=== PATIENT | female | born 1975 | race Caucasian/White ===

== ENCOUNTER 2016-05-08 21:47 | Emergency (ER) | payer OTHER ==
[~2016-05-08] VITALS: Ht 160 cm; Wt 52.2 kg
[~2016-05-08 21:47] MED LIST: HYDR-971 PO; IBUP-1027 PO
[2016-05-08 23:00] VITALS: BP 120/58
[2016-05-08] MEDS ORDERED: CYCL5TAB PO (23:44)
[2016-05-08] MEDS ORDERED: METH4TAB2 PO (23:44)
[2016-05-08] MEDS ORDERED: NAPR500T8 PO (23:44)
--- NOTE | 2016-05-08 23:44 | PHYS DOC ---
Past Medical History Past Medical History: Anxiety, Depression, Hypothyroid, Other Additional Past Medical Histor: pt reports cutting herself frequently Past Surgical History: No Surgical History Additional Past Surgical Histo: breast lumpectomy, benign Alcohol Use: Heavy Drug Use: None Adult General Chief Complaint Chief Complaint: LOWER BACK PAIN OR INJURY HPI HPI Patient is a 40 year old female with history of anxiety and hypothyroidism who presents today with left low back pain radiating into the left buttock that began a week ago after lifting something heavy at work. She works for [employer]. Patient denies any numbness or tingling to bilateral lower extremities or loss of bowel bladder function. She states her pain is worse when she is sitting down. She is standing up. Review of Systems Review of Systems Constitutional: Denies fever or chills [] Musculoskeletal: Left low back pain radiating into the bilateral Integument: Denies rash or skin lesions [] Neurologic: Denies headache, focal weakness or sensory changes [] Endocrine: Denies polyuria or polydipsia [] Allergies Allergies Allergies Coded Allergies Type Severity Reaction Last Updated Verified adhesive Allergy Intermediate 05/08/16 Yes Physical Exam Physical Exam Constitutional: Well developed, well nourished, no acute distress, non-toxic appearance. [] Abdomen: Bowel sounds normal, soft, no tenderness, no masses, no pulsatile masses. [] Skin: Warm, dry, no erythema, no rash. [] Back: Diffuse tenderness to paraspinal muscles of the left lumbar spine worse on the left SI joint, no midline tenderness, no CVA tenderness. [] Extremities: No tenderness, no cyanosis, no clubbing, ROM intact, no edema. [] Neurologic: Alert and oriented X 3, normal motor function, normal sensory function, no focal deficits noted. [] Psychologic: Affect normal, judgement normal, mood normal. [] Current Patient Data Vital Signs Vital Signs Date Time Temp Pulse Resp B/P Pulse Ox O2 Delivery O2 Flow Rate FiO2 05/08/16 23:00 98.5 90 18 100 Room Air 98.5 EKG EKG [] Radiology/Procedures Radiology/Procedures [] Course & Med Decision Making Course & Med Decision Making Pertinent Labs and Imaging studies reviewed. (See chart for details) Patient is in the ED with left low back pain after lifting a heavy item at work a week ago. We did talk about benefits of x-rays as well as side effects. Both patient and I agreed she does not need an x-ray today. Patient has lumbar strain. Recommended heat to her back. Discharge her with anti-inflammatory muscle relaxer and a steroid. She is to follow-up with her own PCP in one week. She was provided return precautions and discharged in stable condition. Dragon Disclaimer Dragon Disclaimer This electronic medical record was generated, in whole or in part, using a voice recognition dictation system. Departure Departure Impression: Primary Impression: Lumbar strain Disposition: 01 HOME, SELF-CARE Condition: STABLE Referrals: BRODY MARQUES MD (PCP) Follow-up with your own doctor in one week Patient Instructions: Lumbosacral Strain Additional Instructions: You were seen for lumbar strain after lifting a heavy object at work. Apply heat to your back. Avoid lifting heavy objects for the next 7 days. Take the prescribed medicines as ordered. Scripts Cyclobenzaprine Hcl 5 Mg Tablet1 Tab PO TID #30 TAB Prov:VINCE FRYE APRN 05/08/16 Methylprednisolone (Medrol)4 Mg Tab.ds.pk1 Pkg PO UD #1 PKG Prov:VINCE FRYE APRN 05/08/16 Naproxen 500 Mg Tablet.dr1 Tab PO BID #60 TAB Ref 2 Prov:VINCE FRYE APRN 05/08/16 Problem Qualifiers Primary Impression: Lumbar strain Encounter type: initial encounter Qualified Code: S39.012A - Strain of muscle, fascia and tendon of lower back, initial encounter VINCE FRYE APRN May 08, 2016 23:44
== END 2016-05-09 01:07 | disposition home or self-care (01) ==
LOC: ER 21:47
DX: S39.012A Strain of muscle, fascia and tendon of lower back, initial encounter (principal); E03.9 Hypothyroidism, unspecified; F10.10 Alcohol abuse, uncomplicated; Z91.048 Other nonmedicinal substance allergy status; F32.9 Major depressive disorder, single episode, unspecified; Y90.9 Presence of alcohol in blood, level not specified; X58.XXXA Exposure to other specified factors, initial encounter; Y93.89 Activity, other specified; Y92.69 Other specified industrial and construction area as the place of occurrence of the external cause; Y99.8 Other external cause status
CPT/HCPCS: 99283

== ENCOUNTER → 2016-06-20 | Outpatient (CLI) | payer OTHER ==
[~2016-06-20] MED LIST changes: +CITA20TA9 PO; +CYCL5TAB PO; +LEVO125T5 PO; +METH4TAB2 PO; +NAPR500T8 PO
[2016-06-20 14:43] LABS: BASO # 0.1 x10^3/uL (0.0-0.2); BASO % 1 % (0-3); EOS % 1 % (0-3); HEMATOCRIT 28.5 % (36.0-47.0); HEMOGLOBIN 8.9 g/dL (12.0-15.5); LYMPH # 3.9 x10^3/uL (1.0-4.8); LYMPH % 61 % (24-48); MEAN CORPUSCULAR HEMOGLOBIN 21 pg (25-35); MEAN CORPUSCULAR HGB CONC 31 g/dL (31-37); MEAN CORPUSCULAR VOLUME 68 fL (79-100); MONO % 5 % (0-9); NEUT % 33 % (31-73); PLATELET COUNT 353 x10^3/uL (140-400); RED CELL DISTRIBUTION WIDTH 19.9 % (11.5-14.5); WHITE BLOOD COUNT 6.4 x10^3/uL (4.0-11.0)
[2016-06-20 15:42] LABS: % BASOS 2 % (0-3); ANISOCYTOSIS SLIGHT; HYPOCHROMIA MOD; MICROCYTOSIS MOD; OVALOCYTES FEW; PLT ESTIMATE ADEQUATE (ADEQUATE); POIKILOCYTOSIS SLIGHT; TARGET CELLS FEW
== END | disposition home or self-care (01) ==
LOC: SURGPAT 13:25
PROVIDERS: ATTEND Obstetrics & Gynecology
DX: Z01.812 Encounter for preprocedural laboratory examination (principal)
CPT/HCPCS: 36415; 85007; 85027

== ENCOUNTER → 2016-06-27 | Outpatient (CLI) | payer OTHER ==
[~2016-06-27] MED LIST changes: +CEPH-264 PO; +TAMS0.4C97 PO
[2016-06-27 08:23] VITALS: BP 106/59
[2016-06-27 08:31] LABS: HEMATOCRIT 28.9 % (36.0-47.0); HEMOGLOBIN 9.1 g/dL (12.0-15.5)
[2016-06-27 09:30] VITALS: BP 86/48
[2016-06-27 10:30] VITALS: BP 85/55
[2016-06-27 11:01] VITALS: BP 107/63
== END | disposition home or self-care (01) ==
LOC: OPS 07:31
PROVIDERS: ATTEND Obstetrics & Gynecology
DX: D64.9 Anemia, unspecified (principal)
CPT/HCPCS: 36415; 36430; 85014; 85018; 86850; 86900; 86901; 86920; P9016

== ENCOUNTER 2016-06-28 07:25 | Observation (INO) | payer OTHER ==
[2016-06-28] VITALS (9 sets, daily range): BP systolic 80–98; BP diastolic 50–61
[~2016-06-28] VITALS: Ht 160 cm; Wt 48.5 kg
[~2016-06-28 07:25] MED LIST changes: +CEFAZOLIN 1GM IVPB FOR OMNI 50 ML IV PRN; -CEPH-264 PO; -TAMS0.4C97 PO
[2016-06-28] MEDS ORDERED: IV RINGERS,LACTATED 1000ML 1,000 ML IV SCH (07:31)
[2016-06-28] MEDS ORDERED: LIDOCAINE 1% 1 ML SYRINGE. ID PRN (07:45)
[2016-06-28] MEDS ORDERED: MIDAZOLAM HCL/PF 2 MG/2 ML VIAL. IV PRN (07:45)
[2016-06-28] MEDS ORDERED: FENTANYL PF 100 MCG/2 ML VIAL. IV PRN (07:45)
[2016-06-28 07:51] LABS: NEG OBC UR NEG; POS OBC UR POS
[2016-06-28] MEDS ORDERED: PROPOFOL 20 ML IV ONE (08:14)
[2016-06-28] MEDS ORDERED: FAMOTIDINE 20 MG/2 ML VIAL ONE (08:14)
[2016-06-28] MEDS ORDERED: LIDOCAINE 2% 100 MG/5 ML DISP.SYRIN. ONE (08:14)
[2016-06-28] MEDS ORDERED: DEXAMETHASONE SOD PHOS 20 MG/5 ML VIAL. ONE (08:14)
[2016-06-28] MEDS ORDERED: ONDANSETRON PF 4 MG/2 ML VIAL. ONE (08:14)
[2016-06-28] MEDS ORDERED: MIDAZOLAM HCL/PF 2 MG/2 ML VIAL. ONE (08:16)
[2016-06-28] MEDS ORDERED: ROCURONIUM 50 MG/5 ML VIAL. ONE (08:16)
[2016-06-28] MEDS ORDERED: FENTANYL PF 100 MCG/2 ML VIAL. ONE ×2 (08:16→10:17)
--- NOTE | 2016-06-28 08:53 | DISCH ---
DISCHARGE INSTRUCTIONS Condition on Discharge Condition on Discharge: Stable Activity After Discharge Activity Instructions for Disc: Progressive ambulation Exercise Instruction after Dis: Progress as tolerated Driving Instructions after Dis: No driving for 2 weeks Weight Bearing Status after Di: Full weight bearing Diet after Discharge Diet after Discharge: Regular Wound Incision Care Wound/Incision Care: Ice to area for comfort, May get incision wet Contacting the DRJaycob after DC Call your doctor for: If your condition worsens Follow-Up Follow up with: Dr. Salas in 1 week HEATHER SALAS MD Jun 28, 2016 08:53
[2016-06-28] MEDS ORDERED: BUPIVACAINE-EPI 0.25%-1:200000 50 ML VIAL. ONE (09:01)
[2016-06-28] MEDS ORDERED: METHYLENE BLUE 1% 1 ML VIAL. ONE (09:01)
[2016-06-28] MEDS ORDERED: ESTROGENS, CONJ VAGINAL CREAM 30GM TUBE. ONE (09:01)
[2016-06-28] MEDS ORDERED: ACETAMINOPHEN INTRAVENOUS 100 ML IV ONE (09:13)
[2016-06-28] MEDS ORDERED: PHENYLEPHRINE in 0.9% NACL PF 1 MG/10 ML DISP.SYRIN. IV ONE (09:54)
[2016-06-28] MEDS ORDERED: NEOSTIGMINE METHYLSULFATE 5 MG/5 ML SYRINGE. ONE (09:55)
[2016-06-28] MEDS ORDERED: GLYCOPYRROLATE 1 MG/5 ML VIAL. ONE (09:55)
[2016-06-28] MEDS ORDERED: SEVOFLURANE 61 TO 120 MINUTES. IH ONE (10:18)
--- NOTE | 2016-06-28 10:24 | PDOC ---
BRIEF OPERATIVE NOTE Date: Jun 28, 2016 Pre-Op Diagnosis menorrhagia, uterine fibroid Post-Op Diagnosis same Procedure Performed lavh and bilateral salpingectomy Surgeon Wanda Hart Anesthesiologist [facility] Anesthesia Type: General Blood Loss <25cc IV Fluid see anesthesia Urine Output 35cc Specimens Obtained uterus, tubes Findings enlarged fibroid uterus Complications none HEATHER SALAS MD Jun 28, 2016 10:24
[2016-06-28] MEDS ORDERED: ZOLPIDEM 5 MG TABLET. PO PRN (10:30)
[2016-06-28] MEDS ORDERED: HYDROCODONE/APAP 5/325MG TABLET. PO PRN (10:30)
[2016-06-28] MEDS ORDERED: PROCHLORPERAZINE 25 MG SUPP.RECT. PR PRN (10:30)
[2016-06-28] MEDS ORDERED: SIMETHICONE 80 MG TAB.CHEW PO PRN (10:30)
[2016-06-28] MEDS ORDERED: DIPHENHYDRAMINE 50 MG/ML VIAL IV PRN (10:30)
[2016-06-28] MEDS ORDERED: DIPHENHYDRAMINE HCL 25 MG CAPSULE PO PRN (10:30)
[2016-06-28] MEDS ORDERED: LACTULOSE 20 GM/30 ML SOLUTION. PO PRN (10:30)
[2016-06-28] MEDS ORDERED: KETOROLAC TROMETHAMINE 30 MG/ML SYRINGE. IV PRN (10:30)
[2016-06-28] MEDS ORDERED: NALOXONE 0.4 MG/ML VIAL. IV PRN (10:30)
[2016-06-28] MEDS ORDERED: CALCIUM CARBONATE 500 MG TAB.CHEW PO PRN (10:30)
[2016-06-28] MEDS ORDERED: 0.9 % SODIUM CHLORIDE 10 ML DISP.SYRIN. IV PRN (10:30)
[2016-06-28] MEDS ORDERED: IBUPROFEN 800 MG TABLET. PO PRN (10:30)
[2016-06-28] MEDS ORDERED: HYDROMORPHONE 2 MG/ML VIAL. IM PRN (10:30)
[2016-06-28] MEDS ORDERED: HYDROMORPHONE 2 MG/ML VIAL. IV PRN (10:30)
[2016-06-28] MEDS ORDERED: MAG HYDROX/ALUMINUM HYD/SIMETH 30 ML ORAL.SUSP PO PRN (10:30)
[2016-06-28] MEDS: FENTANYL PF 100 MCG/2 ML VIAL. IV PRN ×2 (10:39→10:45)
--- NOTE | 2016-06-28 11:47 | OP ---
DATE OF SURGERY: 06/28/2016 PREOPERATIVE DIAGNOSES: This is a 40-year-old female who presents today with history of menorrhagia and uterine fibroids. POSTOPERATIVE DIAGNOSES: This is a 40-year-old female who presents today with history of menorrhagia and uterine fibroids. PROCEDURE: LAVH and bilateral salpingectomy. SURGEON: Rosanne Salas MD. and Dr. Hart. ANESTHESIOLOGIST: Hola Mata MD. ANESTHESIA TYPE: General. ESTIMATED BLOOD LOSS: Less than 25 mL. URINE OUTPUT: Clear. SPECIMENS: Uterus and tubes. FINDINGS: Enlarged uterus. COMPLICATIONS: None. DESCRIPTION OF PROCEDURE: After informed consent was obtained, the patient was taken to the operating room and given a smooth induction of anesthesia without complications. She was placed in lithotomy position in Theodore stirrups and her bladder was drained with a red Olson catheter. She received a gram of Ancef prior to the procedure onset. A bivalve speculum was placed in the vagina and the anterior lip of the cervix was grasped with a single tooth tenaculum. The Valtchev was placed through the cervical os and attached to the tenaculum. The cervix was injected at 2, 4, 8 and 10 o'clock on the cervix with 0.25% Marcaine with epinephrine; 10 mL was used for the whole injection. We then changed gloves and went above. A 5 mm incision was made at the umbilicus. The bladeless trocar was placed down through this incision. The camera confirmed good trocar placement. The patient was placed in Trendelenburg and two lateral ports were placed under direct visualization after transillumination of the abdominal wall. We then used the LigaSure to cauterize across the round ligaments bilaterally. Once these were transected, we created a bladder flap anteriorly using a combination of blunt and sharp dissection with the LigaSure. We then proceeded to cauterize across the tubo-ovarian attachments with mesosalpinx of the tube to free it from the ovary. We then cauterized bilaterally across the utero-ovarian ligaments to free the ovaries and leave them behind. We then cauterized down the sides of the uterus to cauterize the uterine arteries. This was taken down all the way to the uterosacral ligaments. Once we got this far, we abandoned the above procedure and took the instruments out. We then went below. A speculum was placed in the vagina, two Gayatri thyroid clamps were placed, the Valtchev and the single tooth tenaculum. We then created a circumferential incision around the cervix and retracted the bladder superiorly using blunt dissection with a Ray-Neena. We then entered the posterior peritoneum using sharp dissection and tacked the peritoneum to the posterior vaginal wall. This was saved for later use. We then proceeded to clamp, cut and ligate the rest of the cardinal uterosacral complex. This was then tacked to the lateral vaginal sidewalls and saved for later use. We then proceeded to clamp, cut and ligate the rest of the attachments with the cardinal ligament and freed the uterus from its attachments to the pelvis. We then had to slightly morcellate the uterus. We ended up actually with pulling the fibroid out through the sidewall and then this decompressed the uterus and I had to pull it all out together. It was actually all attached when it came out. We then closed the peritoneum using a running pursestring suture of 2-0 Vicryl. The lateral uterosacral tacks had been actually inadvertently cut at this point, so we did not need to do anything else. We closed the vagina with a running locking stitch of 2-0 Vicryl. Good hemostasis was noted. There were no complications below. We went back above to irrigate the pelvis. The pelvis was irrigated and Tisseel was sprayed on all the raw surfaces. No bleeding was noted. We removed the ports under direct visualization and allowed the gas to escape. The port sites were closed with an interrupted suture of 4-0 nylon and infiltrated with the anesthetic for patient comfort. One thing I forgot to mention was that there was a small ovarian cyst on the left ovary. This was punctured and allowed to drain without difficulty. It just looked like a normal follicular cyst. The patient tolerated the procedure well. There were no complications. ROSANNE SALAS MD DR: LALA/crystal JOB#: [id number] / [id number]
[2016-06-28] MEDS: CITALOPRAM 20 MG TABLET. PO SCH (12:00)
[2016-06-28] MEDS: OXYCODONE/APAP 5/325 TABLET. PO PRN ×2 (14:36→20:35)
[2016-06-28] MEDS: LEVOTHYROXINE 125 MCG TABLET PO SCH (20:35)
[2016-06-29 03:06] VITALS: BP 76/47
[2016-06-29] MEDS ORDERED: DIPHENHYDRAMINE 50 MG/ML VIAL. IV PRN (05:02)
[2016-06-29 06:01] VITALS: BP 89/56
[2016-06-29] MEDS: LEVOTHYROXINE 125 MCG TABLET PO SCH (06:11)
[2016-06-29] MEDS: OXYCODONE/APAP 5/325 TABLET. PO PRN ×2 (06:12→09:07)
--- NOTE | 2016-06-29 08:41 | PDOC ---
SURGICAL PROGRESS NOTE Subjective Doing well. Ambulating and eating regular diet. No nausea. Was retaining urine last night and somers was replaced. I gave order to remove this morning, but it hasn't been removed yet. Vital Signs Vital Signs Date Time Temp Pulse Resp B/P Pulse Ox O2 Delivery O2 Flow Rate FiO2 06/29/16 06:12 16 06/29/16 06:01 97.8 53 89/56 98 Room Air 97.8 06/28/16 15:29 2.0 I&O Intake and Output 06/29/16 07:00 Intake Total 1730 ml Output Total 565 ml Balance 1165 ml Intake Oral 380 ml IV Total 1350 ml Output Urine Total 560 ml Estimated Blood Loss 5 ml PATIENT HAS A SOMERS: Yes General: Alert, Oriented X3, Cooperative, No acute distress HEENT: Mucous membr. moist/pink Lungs: Clear to auscultation, Normal air movement Heart: Regular rate, Normal S1, Normal S2, No murmurs Abdomen: Normal bowel sounds, Soft, No tenderness, No hepatosplenomegaly, No masses, Other (incision c/d/i) Extremities: No clubbing, No cyanosis, No edema, Normal pulses, No tenderness/ swelling Labs Laboratory Tests Test 06/28/16 07:35 06/28/16 15:35 Urine Test Negative (NEG) Hematocrit 31.6% (36.0-47.0) Laboratory Tests Test 06/28/16 15:35 Hematocrit 31.6% (36.0-47.0) I have reviewed the following labs, vitals Problem List Plan is to remove somers and allow pt to void. If still retaining urine, will replace somers with leg bag and start on flomax. Will then have come to office Saturday to have somers removed and do voiding trial. Explained to pt and partner and they voiced understanding Problems Medical Problems: (1) Fibroid, uterine Status: Acute (2) Menorrhagia Status: Acute Problems: HEATHER SALAS MD Jun 29, 2016 08:41
[2016-06-29] MEDS ORDERED: TAMS0.4C97 PO (08:48)
[2016-06-29] MEDS ORDERED: CEPH-264 PO (08:50)
--- NOTE | 2016-06-29 08:56 | PDOC3 ---
Discharge Summary Visit Information Date of Admission: Jun 28, 2016 Date of Discharge: Jun 29, 2016 Admitting Diagnosis: see list Final Diagnosis Problems Medical Problems: (1) Fibroid, uterine Status: Acute (2) Menorrhagia Status: Acute (3) Urinary retention with incomplete bladder emptying Status: Acute Brief Hospital Course Allergies Allergies Coded Allergies Type Severity Reaction Last Updated Verified adhesive Allergy Intermediate 06/28/16 Yes Vital Signs Vital Signs Date Time Temp Pulse Resp B/P Pulse Ox O2 Delivery O2 Flow Rate FiO2 06/29/16 06:12 16 06/29/16 06:01 97.8 53 89/56 98 Room Air 97.8 06/28/16 15:29 2.0 Lab Results Laboratory Tests Test 06/28/16 07:35 06/28/16 15:35 Urine Test Negative (NEG) Hematocrit 31.6% (36.0-47.0) Laboratory Tests Test 06/28/16 15:35 Hematocrit 31.6% (36.0-47.0) Brief Hospital Course Ms. De Leon is a 40 old F who presented with menorrhagia and was found to have uterine fibroids. SHe underwent LAVH yesterday and tolerated the procedure well , Last night, pt was having some trouble emptying bladder completely and her somers was replaced. This morning, it will be removed and she will be allowed to void freely. SHe is otherwise doing well. She is tolerating her diet and ambulating. She is tolerating her pain meds. She is ready for discharge. If she cannot void, she will have a leg bag placed and be sent home with flomax and keflex scripts. She will then return Saturday for voiding trial (in office). Discharge Information Condition at Discharge: Improved Follow Up: Weeks (1) Disposition/Orders: D/C to Home Scheduled Citalopram Hydrobromide (Celexa) 20 MG PO DAILY (Reported) Levothyroxine Sodium (Levothyroxine Sodium) 125 MCG PO DAILYAC (Reported) HEATHER SALAS MD Jun 29, 2016 08:56
[2016-06-29] MEDS: CITALOPRAM 20 MG TABLET. PO SCH (09:03)
[2016-06-29 16:54] VITALS: BP 96/67
--- NOTE | 2016-07-02 15:39 | PATHOLOGY ---
PATHOLOGY REPORT * * * * * * * * FINAL DIAGNOSIS: Uterus and attached bilateral fallopian tubes, laparoscopic-assisted vaginal hysterectomy and bilateral salpingectomy: - Leiomyoma, uterine corpus, intramural, measuring up to 7.2 cm in greatest dimension (uterine weight 163 grams). - Mild chronic cervicitis with focal squamous metaplasia. - Proliferative endometrium. - Bilateral fallopian tubes showing congestion and no significant pathologic abnormalities. COMMENT: There is no evidence of malignancy. (JPM:mgfaustino; d/t: 07/02/16) REPORT ELECTRONICALLY SIGNED BY: Jairo Cortés M.D. DATE/TIME: 07/02/2016 15:38 * * * * * * * * GROSS PATHOLOGY: The specimen is received in formalin labeled "Maegan Weiss, uterus, cervix ". Received is a 163 g, 8.6 x 5.5 x 4.3 cm uterus with attached cervix, attached fibroid measuring 8.4 x 4.8 x 4.4 cm, and attached fallopian tubes, weighing 4 and 3 g, left and right, respectively. The uterine serosa is pink-powell and smooth to disrupted in appearance. The 0.4 cm cervical os is surrounded by pale powell, smooth ectocervical mucosa. The uterus is oriented using the peritoneal reflection and the anterior paracervical margin is inked black. The uterus is opened laterally to reveal a pale powell, corrugated endocervical canal measuring 3.3 cm in length. The endometrial cavity is triangular measuring 4.1 cm in length by 2.4 cm in width. The endometrium is pale powell, glistening to granular in appearance and measures 0.1 cm in thickness. Serial sectioning reveals a powell-pink, trabeculated myometrium measuring up to 2.2 cm in thickness displaying an apparent intramural fibroid which has disrupted the uterine serosa, measuring 7.2 cm. The left fimbriated fallopian tube measures 4.4 cm in length by up to 0.8 cm in diameter. The serosal surface is inked black. Sectioning reveals a patent lumen and the fallopian tube appears grossly unremarkable. The right fimbriated fallopian tube measures 5.4 cm in length by 0.6 cm in diameter. Sectioning reveals a pinpoint to patent lumen and the fallopian tube appears grossly unremarkable. The specimen is submitted representatively as follows: A1 12:00 cervix A2 6:00 cervix A3 anterior endomyometrium A4 posterior endomyometrium A5-A6 route sales representative sections of fibroid A7 route sales representative sections of left and right fallopian tubes, differentially inked. Gross photographs are taken. (CAA; 06/29/2016) INITIAL CPT CODE(S): A; 09102 Professional services performed [place] [facility] [place] [address] Technical services performed by [facility] at [address] [place] [address], [address], [place] [address]. SPECIMEN(S) RECEIVED: A.Uterus, cervix CLINICAL HISTORY: Menorrhagia with irregular cycle, fibroids PATIENT: MAEGAN WEISS /AGE: 1012/31/1975 (Age: 40) PATIENT #: [id number] ALT CASE #: SPECIMEN COLLECTION DATE: 06/28/2016 SPECIMEN RECEIVED DATE: 06/28/2016 [facility] - [address] [place] [address] - PHONE: [phone] * * * END OF REPORT * * *
== END 2016-06-29 17:09 | disposition home or self-care (01) ==
LOC: SURG 07:25 → 3 NORTH 10:44
PROVIDERS: ADMIT Obstetrics & Gynecology; ATTEND Obstetrics & Gynecology
DX: N92.0 Excessive and frequent menstruation with regular cycle (principal); D25.9 Leiomyoma of uterus, unspecified; R33.9 Retention of urine, unspecified
CPT/HCPCS: 36415; 58552; 81025; 85014; 96374; A4314; C1769; G0378; G0379; J0131; J0690; J1100; J1885; J2250; J2370; J2405; J2704; J2710; J3010; J3490; J7030; J7120; S0028; Q9968